=== PATIENT | female | born 1975 | race Caucasian/White ===

== ENCOUNTER → 2020-11-16 | Outpatient (CLI) | payer OTHER | LOC: HYPER 08:03 | PROVIDERS: ATTEND Emergency Medicine | DX: L89.324 Pressure ulcer of left buttock, stage 4 (principal); L89.314 Pressure ulcer of right buttock, stage 4; Q76.0 Spina bifida occulta; M86.9 Osteomyelitis, unspecified; G82.20 Paraplegia, unspecified; M41.9 Scoliosis, unspecified; M19.90 Unspecified osteoarthritis, unspecified site; G47.00 Insomnia, unspecified; Z90.710 Acquired absence of both cervix and uterus; Z98.890 Other specified postprocedural states; Z79.899 Other long term (current) drug therapy; Z93.6 Other artificial openings of urinary tract status ==

== ENCOUNTER → 2020-11-30 | Outpatient (CLI) | payer OTHER | LOC: HYPER 08:19 | PROVIDERS: ATTEND Emergency Medicine | DX: L89.324 Pressure ulcer of left buttock, stage 4 (principal); L89.314 Pressure ulcer of right buttock, stage 4; Q76.0 Spina bifida occulta; M86.9 Osteomyelitis, unspecified; G82.20 Paraplegia, unspecified; G47.00 Insomnia, unspecified; M41.9 Scoliosis, unspecified; M19.90 Unspecified osteoarthritis, unspecified site; Z93.6 Other artificial openings of urinary tract status; Z90.6 Acquired absence of other parts of urinary tract; Z79.899 Other long term (current) drug therapy ==

== ENCOUNTER → 2020-12-14 | Outpatient (CLI) | payer OTHER | LOC: HYPER 08:25 | PROVIDERS: ATTEND Emergency Medicine | DX: L89.324 Pressure ulcer of left buttock, stage 4 (principal); L89.314 Pressure ulcer of right buttock, stage 4; L84 Corns and callosities; Q76.0 Spina bifida occulta; M86.9 Osteomyelitis, unspecified; G82.20 Paraplegia, unspecified; G47.00 Insomnia, unspecified; M41.9 Scoliosis, unspecified; M19.90 Unspecified osteoarthritis, unspecified site; Z93.6 Other artificial openings of urinary tract status; Z90.6 Acquired absence of other parts of urinary tract ==

== ENCOUNTER → 2020-12-29 | Outpatient (CLI) | payer OTHER | LOC: HYPER 08:15 | PROVIDERS: ATTEND Emergency Medicine | DX: L89.324 Pressure ulcer of left buttock, stage 4 (principal); L89.314 Pressure ulcer of right buttock, stage 4; L84 Corns and callosities; Q76.0 Spina bifida occulta; M86.9 Osteomyelitis, unspecified; G82.20 Paraplegia, unspecified; G47.00 Insomnia, unspecified; M41.9 Scoliosis, unspecified; M19.90 Unspecified osteoarthritis, unspecified site; Z93.6 Other artificial openings of urinary tract status; Z90.6 Acquired absence of other parts of urinary tract ==

== ENCOUNTER → 2021-01-12 | Outpatient (CLI) | payer OTHER | LOC: HYPER 08:50 | PROVIDERS: ATTEND Emergency Medicine | DX: L89.324 Pressure ulcer of left buttock, stage 4 (principal); Q76.0 Spina bifida occulta; M86.9 Osteomyelitis, unspecified; G82.20 Paraplegia, unspecified; M41.9 Scoliosis, unspecified; G47.00 Insomnia, unspecified; M19.90 Unspecified osteoarthritis, unspecified site; Z79.899 Other long term (current) drug therapy ==

== ENCOUNTER → 2021-02-09 | Outpatient (CLI) | payer OTHER | LOC: HYPER 01-26 08:43 | PROVIDERS: ATTEND Emergency Medicine | DX: L89.324 Pressure ulcer of left buttock, stage 4 (principal); Q76.0 Spina bifida occulta; M86.9 Osteomyelitis, unspecified; G82.20 Paraplegia, unspecified; M19.90 Unspecified osteoarthritis, unspecified site; M41.9 Scoliosis, unspecified; G47.00 Insomnia, unspecified; Z79.899 Other long term (current) drug therapy ==

== ENCOUNTER → 2021-02-23 | Outpatient (CLI) | payer OTHER | LOC: HYPER 09:09 | PROVIDERS: ATTEND Emergency Medicine | DX: L89.324 Pressure ulcer of left buttock, stage 4 (principal); L84 Corns and callosities; Q76.0 Spina bifida occulta; G82.20 Paraplegia, unspecified; G47.00 Insomnia, unspecified; M86.9 Osteomyelitis, unspecified; M19.90 Unspecified osteoarthritis, unspecified site; M41.9 Scoliosis, unspecified ==

== ENCOUNTER → 2021-03-09 | Outpatient (CLI) | payer OTHER | LOC: HYPER 08:13 | PROVIDERS: ATTEND Emergency Medicine | DX: L89.324 Pressure ulcer of left buttock, stage 4 (principal); M86.9 Osteomyelitis, unspecified; Q76.0 Spina bifida occulta; G82.20 Paraplegia, unspecified; M41.9 Scoliosis, unspecified; M19.90 Unspecified osteoarthritis, unspecified site; G47.00 Insomnia, unspecified; Z98.890 Other specified postprocedural states; Z79.899 Other long term (current) drug therapy ==

== ENCOUNTER → 2021-03-29 | Outpatient (CLI) | payer OTHER | LOC: HYPER 14:17 | PROVIDERS: ATTEND Emergency Medicine | DX: L89.324 Pressure ulcer of left buttock, stage 4 (principal); L89.313 Pressure ulcer of right buttock, stage 3; M86.9 Osteomyelitis, unspecified; Q76.0 Spina bifida occulta; G82.20 Paraplegia, unspecified; G47.00 Insomnia, unspecified; M41.9 Scoliosis, unspecified; M19.90 Unspecified osteoarthritis, unspecified site ==

== ENCOUNTER → 2021-04-25 | Outpatient (CLI) | payer OTHER | LOC: HYPER 09:55 | PROVIDERS: ATTEND Emergency Medicine | DX: L89.324 Pressure ulcer of left buttock, stage 4 (principal); L89.313 Pressure ulcer of right buttock, stage 3; L98.412 Non-pressure chronic ulcer of buttock with fat layer exposed; Q76.0 Spina bifida occulta; M86.9 Osteomyelitis, unspecified; G82.20 Paraplegia, unspecified; M41.9 Scoliosis, unspecified; G47.00 Insomnia, unspecified; M19.90 Unspecified osteoarthritis, unspecified site; Z79.899 Other long term (current) drug therapy ==

== ENCOUNTER → 2021-05-10 | Outpatient (CLI) | payer OTHER | LOC: HYPER 10:44 | PROVIDERS: ATTEND Emergency Medicine | DX: L89.324 Pressure ulcer of left buttock, stage 4 (principal); L89.313 Pressure ulcer of right buttock, stage 3; L84 Corns and callosities; Q76.0 Spina bifida occulta; M86.9 Osteomyelitis, unspecified; G82.20 Paraplegia, unspecified; G47.00 Insomnia, unspecified; M41.9 Scoliosis, unspecified; M19.90 Unspecified osteoarthritis, unspecified site; Z93.6 Other artificial openings of urinary tract status; Z79.899 Other long term (current) drug therapy ==

== ENCOUNTER → 2021-05-25 | Outpatient (CLI) | payer OTHER | LOC: HYPER 08:58 | PROVIDERS: ATTEND Emergency Medicine | DX: L89.324 Pressure ulcer of left buttock, stage 4 (principal); L89.313 Pressure ulcer of right buttock, stage 3; L84 Corns and callosities; Q76.0 Spina bifida occulta; M86.9 Osteomyelitis, unspecified; G82.20 Paraplegia, unspecified; G47.00 Insomnia, unspecified; M41.9 Scoliosis, unspecified; M19.90 Unspecified osteoarthritis, unspecified site; Z93.6 Other artificial openings of urinary tract status; Z90.710 Acquired absence of both cervix and uterus ==

== ENCOUNTER → 2021-06-08 | Outpatient (CLI) | payer OTHER | LOC: HYPER 10:35 | PROVIDERS: ATTEND Emergency Medicine | DX: L89.324 Pressure ulcer of left buttock, stage 4 (principal); L89.313 Pressure ulcer of right buttock, stage 3; L84 Corns and callosities; Q76.0 Spina bifida occulta; M86.9 Osteomyelitis, unspecified; G82.20 Paraplegia, unspecified; G47.00 Insomnia, unspecified; M41.9 Scoliosis, unspecified; M19.90 Unspecified osteoarthritis, unspecified site; Z93.6 Other artificial openings of urinary tract status; Z90.710 Acquired absence of both cervix and uterus ==

== ENCOUNTER → 2021-07-06 | Outpatient (CLI) | payer OTHER | LOC: HYPER 08:25 | PROVIDERS: ATTEND Emergency Medicine | DX: L89.324 Pressure ulcer of left buttock, stage 4 (principal); L89.313 Pressure ulcer of right buttock, stage 3; L84 Corns and callosities; Q76.0 Spina bifida occulta; M86.9 Osteomyelitis, unspecified; G82.20 Paraplegia, unspecified; G47.00 Insomnia, unspecified; M41.9 Scoliosis, unspecified; M19.90 Unspecified osteoarthritis, unspecified site; Z93.6 Other artificial openings of urinary tract status; Z90.710 Acquired absence of both cervix and uterus ==

== ENCOUNTER → 2021-07-20 | Outpatient (CLI) | payer OTHER | LOC: HYPER 10:22 | PROVIDERS: ATTEND Emergency Medicine | DX: L89.324 Pressure ulcer of left buttock, stage 4 (principal); L89.313 Pressure ulcer of right buttock, stage 3; Q76.0 Spina bifida occulta; M86.9 Osteomyelitis, unspecified; G82.20 Paraplegia, unspecified; M41.9 Scoliosis, unspecified; M19.90 Unspecified osteoarthritis, unspecified site; G47.00 Insomnia, unspecified; Z79.899 Other long term (current) drug therapy ==